=== PATIENT | male | born 1955 | race Caucasian/White ===

== ENCOUNTER 2021-06-23 12:47 | Emergency (ER) | payer BC ==
[~2021-06-23] VITALS: Ht 190.5 cm; Wt 83.9 kg
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
--- NOTE | 2021-06-23 12:55 | NUR ---
BP 111/20, VS STABLE
--- NOTE | 2021-06-23 13:22 | NUR ---
Patient discharged to home in stable condition. Written and verbal after care instructions given. Patient verbalizes understanding of instruction.
[2021-06-23 13:24] VITALS: BP 128/63
== END 2021-06-23 13:20 | disposition home or self-care (01) ==
LOC: ER 12:59
DX: I10 Essential (primary) hypertension (principal); V89.2XXA Person injured in unspecified motor-vehicle accident, traffic, initial encounter; Y93.89 Activity, other specified; Y92.89 Other specified places as the place of occurrence of the external cause; Y99.8 Other external cause status